=== PATIENT | male | born 1960 | race Caucasian/White ===

== ENCOUNTER → 2017-04-13 | Outpatient (CLI) | payer BC ==
--- NOTE | 2017-04-16 08:35 | PCVCIMAG ---
APPROVED REPORT Study performed: 04/13/2017 14:38:54 EXAM: Comprehensive 2D, Doppler, and color-flow Echocardiogram Patient Location: Echo lab Status: routine BSA: 2.21 HR: 59 bpmBP: 130/80 mmHg Rhythm: NSR Other Information Study Quality: Good Risk Factors: Cardiac Risk Factors: HTN, Hyperlipidemia, FHX of CAD Indications Hypertension/HDD hypercholesterolemia, Fam hx early onset CAD 2D Dimensions LVEF(%): 76.31 (>50%) IVSd: 9.81 (7-11mm)LVOT Diam: 20.68 (18-24mm) LVDd: 52.14 mm PWd: 9.76 (7-11mm)Ascending Ao: 28.36 (22-36mm) LVDs: 28.50 (25-40mm) Left Atrium: 33.46 (27-40mm) Aortic Root: 22.51 mm LV Single Plane 4CH: 63.64 % LV Single Plane 2CH: 76.37 %Vazquez's LVEF: 70.00 % Biplane EF: 71.3 % Volumes Left Atrial Volume (Systole) Single Plane 4CH: 46.53 mLSingle Plane 2CH: 27.85 mL Biplane LA Volume: 36.00 mLLA ESV Index: 17.00 mL/m2 Aortic Valve AoV Peak Ilir.: 1.80 m/s AO Peak Gr.: 12.98 mmHgLVOT Max P.07 mmHg LVOT Max V: 1.01 m/s EM Vmax: 1.88 cm2 Mitral Valve E/A Ratio: 1.2 MV Decel. Time: 228.09 ms MV E Max Ilir.: 0.87 m/s MV A Ilir.: 0.73 m/s IVRT: 86.51 ms TDI E/Lateral E': 8.70E/Medial E': 10.88 Medial E' Ilir.: 0.08 m/s Lateral E' Ilir.: 0.10 m/s Pulmonary Vein P Vein S: 0.62 m/sP Vein A: 0.26 m/s P Vein D: 0.67 m/sP Vein A Dur.: 72.7 msec P Vein S/D Ratio: 0.93 Tricuspid Valve TR Peak Ilir.: 1.90 m/s TR Peak Gr.: 14.39 mmHg TV Vmax: 0.66 m/sPA Pressure: 21.00 mmHg Left Ventricle The left ventricle is normal size. There is normal LV segmental wall motion. Borderline concentric left ventricular hypertrophy. Left ventricular systolic function is normal. The left ventricular ejection fraction is within the normal range. LVEF is 60-65%. The left ventricular diastolic function is normal. Right Ventricle The right ventricle is normal size. The right ventricular systolic function is normal. Atria The left atrium size is normal. The right atrium size is normal. Aortic Valve The aortic valve is trileaflet, mildly calcified No aortic regurgitation is present. There is no aortic valvular stenosis. Mitral Valve The mitral valve is normal in structure. There is no mitral valve regurgitation noted. No evidence of mitral valve stenosis. Tricuspid Valve The tricuspid valve is normal in structure. Trace tricuspid regurgitation. Pulmonic Valve The pulmonary valve is normal in structure. There is no pulmonic valvular regurgitation. Great Vessels The aortic root is normal in size. The ascending aorta is normal in size. IVC is normal in size and collapses with >50% inspiration Pericardium There is no pericardial effusion. There is no pleural effusion. <Conclusion> Left ventricular systolic function is normal. There is normal LV segmental wall motion. LVEF is 60-65%. Diastolic function is normal. The aortic valve is trileaflet, mildly calcified. No aortic valvular stenosis or insufficiency. The mitral valve is normal in structure. No mitral valve regurgitation noted. Pulmonary artery pressure could not be reliably ascertained There is no pericardial effusion.
== END | disposition home or self-care (01) ==
LOC: PCVCIMAG 14:21
PROVIDERS: ATTEND Internal Medicine Cardiovascular Disease
DX: I10 Essential (primary) hypertension (principal); I07.1 Rheumatic tricuspid insufficiency; Z82.49 Family history of ischemic heart disease and other diseases of the circulatory system
CPT/HCPCS: 93306

== ENCOUNTER → 2018-05-21 | Outpatient (CLI) | payer BC | END | disposition home or self-care (01) | LOC: PCVCCLINIC 15:36 | PROVIDERS: ATTEND Internal Medicine | DX: I10 Essential (primary) hypertension (principal); E78.5 Hyperlipidemia, unspecified; G47.33 Obstructive sleep apnea (adult) (pediatric); R93.1 Abnormal findings on diagnostic imaging of heart and coronary circulation; R07.9 Chest pain, unspecified; Z79.82 Long term (current) use of aspirin | CPT/HCPCS: 93005; G0463 ==

== ENCOUNTER → 2018-06-06 | Outpatient (CLI) | payer BC ==
--- NOTE | 2018-06-07 09:37 | PCVCIMAG ---
APPROVED REPORT Study performed: 06/06/2018 08:09:34 EXAM: Comprehensive 2D, Doppler, and color-flow Echocardiogram Patient Location: Echo lab Status: routine BSA: 2.19 HR: 61 bpmBP: 140/80 mmHg Rhythm: NSR Other Information Study Quality: Technically Limited Risk Factors: Cardiac Risk Factors: HTN, Hyperlipidemia, FHX of CAD Indications Elevated calcium score 2D Dimensions IVSd: 14.82 (7-11mm)LVOT Diam: 18.02 (18-24mm) LVDd: 38.40 mm PWd: 11.60 (7-11mm)Ascending Ao: 30.21 (22-36mm) LVDs: 30.72 (25-40mm) Left Atrium: 40.07 (27-40mm) Aortic Root: 24.62 mm LV Single Plane 2CH: 50.89 % Volumes Left Atrial Volume (Systole) Single Plane 4CH: 34.90 mLSingle Plane 2CH: 31.12 mL LA ESV Index: 16.00 mL/m2 Aortic Valve AoV Peak Ilir.: 1.72 m/s AO Peak Gr.: 11.78 mmHgLVOT Max P.06 mmHg LVOT Max V: 1.12 m/s EM Vmax: 1.67 cm2 Mitral Valve E/A Ratio: 1.2 MV Decel. Time: 197.39 ms MV E Max Ilir.: 1.03 m/s MV A Ilir.: 0.86 m/s TDI E/Lateral E': 8.58E/Medial E': 10.30 Medial E' Ilir.: 0.10 m/s Lateral E' Ilri.: 0.12 m/s Pulmonary Valve PV Peak Gr.: 2.63 mmHg Left Ventricle The left ventricle is normal size. There is normal LV segmental wall motion. Mild concentric left ventricular hypertrophy. Left ventricular systolic function is normal. The left ventricular ejection fraction is within the normal range. LVEF is 55-60%. The left ventricular diastolic function is normal. Right Ventricle The right ventricle is normal size. The right ventricular systolic function is normal. Atria The left atrium size is normal. The right atrium size is normal. Aortic Valve The aortic valve is normal in structure. No aortic regurgitation is present. There is no aortic valvular stenosis. Mitral Valve The mitral valve is normal in structure. There is no mitral valve regurgitation noted. No evidence of mitral valve stenosis. Tricuspid Valve The tricuspid valve is normal in structure. There is no tricuspid valve regurgitation noted. Pulmonic Valve The pulmonary valve is normal in structure. There is no pulmonic valvular regurgitation. Great Vessels The aortic root is normal in size. IVC is normal in size and collapses >50% with inspiration. Pericardium There is no pericardial effusion. <Conclusion> LVEF is 55-60%. The aortic valve is normal in structure. The mitral valve is normal in structure. The tricuspid valve is normal in structure. The pulmonary valve is normal in structure. There is no pericardial effusion.
== END | disposition home or self-care (01) ==
LOC: PCVCIMAG 08:07
PROVIDERS: ATTEND Internal Medicine
DX: I10 Essential (primary) hypertension (principal); G47.33 Obstructive sleep apnea (adult) (pediatric); R93.1 Abnormal findings on diagnostic imaging of heart and coronary circulation
CPT/HCPCS: 78452; 93017; 93306; A9500